=== PATIENT | male | born 1940 | race Caucasian/White ===

== ENCOUNTER 2019-03-08 12:13 | Outpatient (CLI) | payer MEDICARE, OTHER ==
[~2019-03-08 12:13] MED LIST: BISA10SU4 PR; DOCU100C33 PO; GADOTERATE 10 MMOL/20 ML SYR ONE; HYDR-3237 PO; MULT-658 PO; ONDA4TAB13 SL; POLY17PO5 PO; SAW160CA4 PO; TAMS-11 PO; WARF4TAB65 PO; WARF7.5T PO; ZONI100C2 PO; [UNRECOGNIZED DRUG - OTHER] PO
== END 2019-03-08 23:59 | disposition home or self-care (01) ==
LOC: CFH 12:13
PROVIDERS: ATTEND Psychiatry & Neurology Neurology
DX: G31.9 Degenerative disease of nervous system, unspecified (principal); G93.89 Other specified disorders of brain; R60.0 Localized edema; Z86.718 Personal history of other venous thrombosis and embolism; Z86.73 Personal history of transient ischemic attack (TIA), and cerebral infarction without residual deficits
CPT/HCPCS: 70553; A9575

== ENCOUNTER 2019-05-21 15:52 | Outpatient (CLI) | payer MEDICARE, OTHER ==
[~2019-05-21 15:52] MED LIST changes: +ASPI81TA45 PO; +DIVA-61 PO; -GADOTERATE 10 MMOL/20 ML SYR ONE; +LEVE500T53 PO; +ROSU5TAB PO; +[UNRECOGNIZED DRUG - CODE] PO; +[UNRECOGNIZED DRUG - CODE] PO; +[UNRECOGNIZED DRUG - OTHER] PO; +[UNRECOGNIZED DRUG - OTHER] PO
[2019-05-21 16:34] LABS: BILIRUBIN, DIRECT 0.1 mg/dL (0.1-0.2)
== END 2019-05-21 23:59 | disposition home or self-care (01) ==
LOC: LAB 15:52
PROVIDERS: ATTEND Psychiatry & Neurology Neurology
DX: Z01.818 Encounter for other preprocedural examination (principal); R33.9 Retention of urine, unspecified
CPT/HCPCS: 36415; 80164; 80177; 82248

== ENCOUNTER 2019-05-23 12:28 | Day surgery (SDC) | payer MEDICARE, OTHER ==
[2019-05-21 15:35] LABS: BASOPHILS # (AUTO) 0.01 x10^3/uL (0-0.1); BASOPHILS % (AUTO) 0 % (0-1); EOSINOPHILS # (AUTO) 0.16 x10^3/uL (0-0.4); EOSINOPHILS % (AUTO) 3 % (1-7); LYMPHOCYTES # (AUTO) 1.47 x10^3/uL (1-3.4); LYMPHOCYTES % (AUTO) 25 % (22-44); MD NO; MEAN CORPUSCULAR HEMOGLOBIN 30.9 pg (27.5-34.5); MEAN CORPUSCULAR HGB CONC 33.8 g/dL (33.2-36.2); MEAN CORPUSCULAR VOLUME 91.4 fL (81-97); MEAN PLATELET VOLUME 7.8 fL (7.4-10.4); MONOCYTES % (AUTO) 9 % (2-9); NEUTROPHILS # (AUTO) 3.66 x10^3/uL (1.8-6.8); NEUTROPHILS % (AUTO) 63 % (42-75); PLATELET COUNT 175 x10^3/uL (130-400); RED BLOOD COUNT 4.61 x10^6/uL (4.38-5.82); RED CELL DISTRIBUTION WIDTH 14.5 % (9.4-14.8)
[2019-05-21 15:46] LABS: ALBUMIN 3.6 g/dL (3.4-5.0); ANION GAP 7 mmol/L (5-15); CALCIUM 8.6 mg/dL (8.5-10.1); CHLORIDE 108 mmol/L (98-107)
[2019-05-21 15:50] LABS: ALANINE AMINOTRANSFERASE 32 U/L (12-78); ALKALINE PHOSPHATASE 52 U/L (45-117); BILIRUBIN,TOTAL 0.5 mg/dL (0.2-1.0); CREATININE 0.98 mg/dL (0.7-1.3); TOTAL PROTEIN 7.7 g/dL (6.4-8.2)
[2019-05-21 16:17] LABS: INTERNATIONAL NORMALIZED RATIO 0.94 (0.93-1.1)
[~2019-05-23] VITALS: Ht 180.3 cm; Wt 85.7 kg
[2019-05-23] MEDS ORDERED: LACTATED RINGERS 1,000 ML IV SCH (12:52)
[2019-05-23 12:59] VITALS: BP 142/83
[2019-05-23] MEDS ORDERED: CBD OIL PO (13:18)
[2019-05-23] MEDS ORDERED: FENTANYL PF 250 MCG/5ML ONE (14:10)
[2019-05-23] MEDS ORDERED: PROPOFOL 10 MG/ML, 20ML ONE (14:46)
[2019-05-23] MEDS ORDERED: CEFAZOLIN 1,000 MG ONE ×2 (14:47)
[2019-05-23] MEDS ORDERED: DEXAMETHASONE 4 MG/ML, 1ML ONE (14:48)
[2019-05-23] MEDS ORDERED: ONDANSETRON 2MG/ML, 2ML ONE (14:49)
[2019-05-23] MEDS ORDERED: hydrALAzine 20 MG/ML, 1ML IV PRN (15:00)
[2019-05-23] MEDS ORDERED: HYDROmorphone 2 MG/ML, 1ML IVPush PRN (15:00)
[2019-05-23] MEDS ORDERED: PROMETHAZINE 25 MG/ML, 1ML IV PRN (15:00)
[2019-05-23] MEDS ORDERED: LABETALOL 5MG/ML, 20ML IV PRN (15:00)
[2019-05-23] MEDS ORDERED: FENTANYL PF 100 MCG/2ML IV PRN (15:00)
[2019-05-23] MEDS ORDERED: ONDANSETRON 2MG/ML, 2ML IV PRN (15:00)
[2019-05-23] MEDS ORDERED: OXYcodone 5 MG/5 ML ORAL.SOL UDC PO PRN (15:00)
== END 2019-05-23 17:55 | disposition home or self-care (01) ==
LOC: OUT 12:28
PROVIDERS: ATTEND Student in an Organized Health Care Education/Training Program
DX: C61 Malignant neoplasm of prostate (principal); N40.1 Benign prostatic hyperplasia with lower urinary tract symptoms; R33.8 Other retention of urine; Z98.890 Other specified postprocedural states; Z86.718 Personal history of other venous thrombosis and embolism; Z86.711 Personal history of pulmonary embolism
CPT/HCPCS: 36415; 52601; 80053; 85025; 85610; 88305; 93005; J0690; J1100; J2405; J2704; J3010; J7120

== ENCOUNTER → 2019-06-08 | Outpatient (CLI) | payer MEDICARE, OTHER ==
[~2019-06-08] MED LIST changes: +CBD OIL PO; +LEUPROLIDE (ELIGARD) 22.5 MG SYR SQ ONE; -ZONI100C2 PO; +ZONI100C29 PO
== END | disposition home or self-care (01) ==
LOC: ROC 09:36
PROVIDERS: ATTEND Radiology Radiation Oncology
DX: C61 Malignant neoplasm of prostate (principal); Z91.09 Other allergy status, other than to drugs and biological substances
CPT/HCPCS: G0463; J9217

== ENCOUNTER → 2019-07-25 | Outpatient (CLI) | payer MEDICARE, OTHER ==
[~2019-07-25] MED LIST changes: -LEUPROLIDE (ELIGARD) 22.5 MG SYR SQ ONE
[2019-07-25 15:44] LABS: BASOPHILS # (AUTO) 0.02 x10^3/uL (0-0.1); BASOPHILS % (AUTO) 0 % (0-1); EOSINOPHILS # (AUTO) 0.08 x10^3/uL (0-0.4); EOSINOPHILS % (AUTO) 2 % (1-7); LYMPHOCYTES % (AUTO) 24 % (22-44); MD NO; MEAN CORPUSCULAR HEMOGLOBIN 30.9 pg (27.5-34.5); MEAN CORPUSCULAR HGB CONC 34.2 g/dL (33.2-36.2); MEAN CORPUSCULAR VOLUME 90.4 fL (81-97); MEAN PLATELET VOLUME 8.1 fL (7.4-10.4); MONOCYTES # (AUTO) 0.57 x10^3/uL (0.2-0.8); MONOCYTES % (AUTO) 13 % (2-9); NEUTROPHILS # (AUTO) 2.79 x10^3/uL (1.8-6.8); NEUTROPHILS % (AUTO) 61 % (42-75); PLATELET COUNT 169 x10^3/uL (130-400); RED BLOOD COUNT 4.66 x10^6/uL (4.38-5.82)
[2019-07-25 15:54] LABS: ALANINE AMINOTRANSFERASE 26 U/L (12-78); ALBUMIN 3.7 g/dL (3.4-5.0); ANION GAP 7 mmol/L (5-15); CALCIUM 9.1 mg/dL (8.5-10.1); CHLORIDE 108 mmol/L (98-107); CREATININE 0.97 mg/dL (0.7-1.3)
[2019-07-25 16:04] LABS: ALKALINE PHOSPHATASE 51 U/L (45-117); BILIRUBIN,TOTAL 0.3 mg/dL (0.2-1.0); T4 (THYROXINE) 9.2 mcg/dL (4.5-12.1); TOTAL PROTEIN 7.8 g/dL (6.4-8.2)
== END | disposition home or self-care (01) ==
LOC: CFH 14:13
PROVIDERS: ATTEND Radiology Radiation Oncology
DX: Z08 Encounter for follow-up examination after completed treatment for malignant neoplasm (principal); R97.20 Elevated prostate specific antigen [PSA]; R53.82 Chronic fatigue, unspecified; D61.818 Other pancytopenia; E07.9 Disorder of thyroid, unspecified; Z85.46 Personal history of malignant neoplasm of prostate
CPT/HCPCS: 36415; 80053; 84153; 84403; 84436; 84443; 84480; 85025

== ENCOUNTER 2019-08-13 08:37 | Outpatient (CLI) | payer MEDICARE, OTHER | END 2019-08-13 23:59 | disposition home or self-care (01) | LOC: ROC 08:37 | PROVIDERS: ATTEND Radiology Radiation Oncology | DX: Z02.9 Encounter for administrative examinations, unspecified (principal) ==

== ENCOUNTER 2019-08-23 22:33 | Observation (INO) | payer MEDICARE, OTHER ==
[~2019-08-23] VITALS: Ht 180.3 cm; Wt 86.7 kg
--- NOTE | 2019-08-23 22:39 | NUR ---
THIS IS A 79Y M BIB EMS FROM HOME FOR SZ WITNESSED BY LASTING 5MINS. PT WAS SITTING WATCHING TV WHEN SZ OCCURRED. PT ARRIVED A/O 4 SPEAKING IN FULL SENTENCES. PER PT LAST SZ WAS FATHERS DAY LAST YEAR PT CONNECTED TO ALL MONITORING NADN.
[2019-08-23 22:50] LABS: BASOPHILS # (AUTO) 0.07 x10^3/uL (0-0.1); BASOPHILS % (AUTO) 1 % (0-1); EOSINOPHILS # (AUTO) 0.06 x10^3/uL (0-0.4); EOSINOPHILS % (AUTO) 0 % (1-7); LYMPHOCYTES # (AUTO) 1.21 x10^3/uL (1-3.4); LYMPHOCYTES % (AUTO) 8 % (22-44); MD NO; MEAN CORPUSCULAR HEMOGLOBIN 30.1 pg (27.5-34.5); MEAN CORPUSCULAR HGB CONC 33.8 g/dL (33.2-36.2); MEAN CORPUSCULAR VOLUME 89.1 fL (81-97); MEAN PLATELET VOLUME 7.5 fL (7.4-10.4); MONOCYTES # (AUTO) 0.35 x10^3/uL (0.2-0.8); MONOCYTES % (AUTO) 2 % (2-9); NEUTROPHILS # (AUTO) 13.06 x10^3/uL (1.8-6.8); NEUTROPHILS % (AUTO) 89 % (42-75); PLATELET COUNT 200 x10^3/uL (130-400); RED BLOOD COUNT 4.42 x10^6/uL (4.38-5.82); RED CELL DISTRIBUTION WIDTH 14.6 % (9.4-14.8)
[2019-08-23 23:02] LABS: ALANINE AMINOTRANSFERASE 24 U/L (12-78); ALBUMIN 3.5 g/dL (3.4-5.0); ANION GAP 11 mmol/L (5-15); CALCIUM 9.3 mg/dL (8.5-10.1); CHLORIDE 108 mmol/L (98-107); CREATININE 1.52 mg/dL (0.7-1.3)
[2019-08-23 23:03] LABS: ALKALINE PHOSPHATASE 48 U/L (45-117); BILIRUBIN,TOTAL 0.3 mg/dL (0.2-1.0); TOTAL PROTEIN 7.7 g/dL (6.4-8.2)
--- NOTE | 2019-08-23 23:06 | NUR ---
NOW AT BEDSIDE
--- NOTE | 2019-08-23 23:08 | NUR ---
PT TO CT AT THIS TIME
--- NOTE | 2019-08-23 23:34 | NUR ---
ALL RESULTS BACK AT THIS TIME CHART UP FOR RECHECK
[2019-08-23] MEDS ORDERED: LORazepam 2 MG/ML, 1ML ONE (23:53)
[2019-08-24] MEDS ORDERED: LORazepam 2 MG/ML, 1ML IVPush ONE
--- NOTE | 2019-08-24 00:08 | NUR ---
PT EXPERIENCED APPROX 3MIN MD DYLON UPDATED ORDERS RECEIVED. PT MEDICATED PER MAR
--- NOTE | 2019-08-24 00:30 | NUR ---
PT AND PT INTERACTING WITH NEURO MD VIA TELE ROBOT AT THIS TIME
--- NOTE | 2019-08-24 01:17 | NUR ---
MEDICATIONS ORDERED FROM PHARMACY
--- NOTE | 2019-08-24 01:22 | NUR ---
RESTING QUIETLY AT THIS TIME, NO SEIZURE ACTIVITY CURRENTLY, SEIZURE PADS IN PLACE.
[2019-08-24] MEDS ORDERED: LEVETIRACETAM 1,000 MG in SODIUM CHLORIDE 0.9% 100 ML IV ONE ×2 (01:30)
--- NOTE | 2019-08-24 02:16 | NUR ---
PT CALLED TO SAY SHE WILL BRING BIPAP TOMORROW
--- NOTE | 2019-08-24 02:20 | NUR ---
REPORT TO FLOOR VELIA GERMAN PT READY TO BE TRANSFERED TO ROOM [id number]
[2019-08-24 03:19] VITALS: BP 106/63
[2019-08-24] MEDS ORDERED: LORazepam 1MG TABLET PO PRN (05:30)
[2019-08-24] MEDS ORDERED: ACETAMINOPHEN 325 MG TABLET PO PRN (05:30)
[2019-08-24] MEDS ORDERED: ONDANSETRON 2MG/ML, 2ML IVPush PRN (05:30)
[2019-08-24 08:00] VITALS: BP 99/60
[2019-08-24] MEDS: SENNA/DOCUSATE TABLET PO SCH (09:00)
[2019-08-24] MEDS: DIVALPROEX 500 MG TABLET.DR PO SCH ×2 (09:00→20:05)
[2019-08-24] MEDS: ASPIRIN 81 MG TABLET EC PO SCH (09:00)
[2019-08-24] MEDS: LACTATED RINGERS 1,000 ML IV SCH ×2 (09:06→18:19)
[2019-08-24] MEDS ORDERED: LEVETIRACETAM 500 MG TABLET ONE (09:10)
[2019-08-24] MEDS: LEVETIRACETAM 500 MG TABLET PO SCH ×2 (09:11→20:05)
[2019-08-24 11:42] VITALS: BP 99/61
[2019-08-24 12:05] LABS: MICROSCOPIC NOT IND
[2019-08-24 12:09] LABS: CULTURE INDICATED? NO
[2019-08-24 14:58] VITALS: BP 110/68
[2019-08-24 20:17] VITALS: BP 106/68
[2019-08-24] MEDS ORDERED: TEMPLATE NON-FORMULARY MED. (Rosuvastatin Calcium** (Crestor**) 5 MG) HOMEMEDPO SCH (21:00)
[2019-08-25 00:56] VITALS: BP 112/68
[2019-08-25] MEDS: LACTATED RINGERS 1,000 ML IV SCH ×2 (02:16→12:06)
[2019-08-25 06:16] LABS: BASOPHILS # (AUTO) 0.02 x10^3/uL (0-0.1); BASOPHILS % (AUTO) 0 % (0-1); EOSINOPHILS # (AUTO) 0.15 x10^3/uL (0-0.4); EOSINOPHILS % (AUTO) 3 % (1-7); LYMPHOCYTES # (AUTO) 1.02 x10^3/uL (1-3.4); LYMPHOCYTES % (AUTO) 19 % (22-44); MD NO; MEAN CORPUSCULAR HEMOGLOBIN 30.2 pg (27.5-34.5); MEAN CORPUSCULAR HGB CONC 33.1 g/dL (33.2-36.2); MEAN CORPUSCULAR VOLUME 91.2 fL (81-97); MEAN PLATELET VOLUME 7.5 fL (7.4-10.4); MONOCYTES # (AUTO) 0.45 x10^3/uL (0.2-0.8); MONOCYTES % (AUTO) 9 % (2-9); NEUTROPHILS # (AUTO) 3.67 x10^3/uL (1.8-6.8); NEUTROPHILS % (AUTO) 69 % (42-75); PLATELET COUNT 155 x10^3/uL (130-400); RED BLOOD COUNT 4.01 x10^6/uL (4.38-5.82); RED CELL DISTRIBUTION WIDTH 14.8 % (9.4-14.8)
[2019-08-25 06:23] LABS: CHLORIDE 113 mmol/L (98-107)
[2019-08-25 06:31] LABS: ANION GAP 6 mmol/L (5-15); CALCIUM 8.7 mg/dL (8.5-10.1); CREATININE 0.79 mg/dL (0.7-1.3); TRIGLYCERIDES 132 mg/dL (50-200)
[2019-08-25 07:52] VITALS: BP 114/65
[2019-08-25] MEDS: ASPIRIN 81 MG TABLET EC PO SCH (09:02)
[2019-08-25] MEDS: DIVALPROEX 500 MG TABLET.DR PO SCH (09:02)
[2019-08-25] MEDS: SENNA/DOCUSATE TABLET PO SCH (09:02)
[2019-08-25] MEDS: LEVETIRACETAM 500 MG TABLET PO SCH (09:02)
[2019-08-25] MEDS ORDERED: LEVE500T53 PO (11:30)
[2019-08-25] MEDS ORDERED: DIVA-61 PO (11:30)
== END 2019-08-25 18:33 | disposition home or self-care (01) ==
LOC: ED 23:04 → EDIP 08-24 01:40 → OBSVTOIN 08-24 01:40 → INTOOBSV 08-24 01:40 → 4WST 08-24 03:10 → 4NE 08-24 12:11 → 4NW 08-24 15:58
PROVIDERS: ATTEND Internal Medicine
DX: G40.409 Other generalized epilepsy and epileptic syndromes, not intractable, without status epilepticus (principal); I25.10 Atherosclerotic heart disease of native coronary artery without angina pectoris; N17.9 Acute kidney failure, unspecified; D64.9 Anemia, unspecified; I69.354 Hemiplegia and hemiparesis following cerebral infarction affecting left non-dominant side; N40.0 Benign prostatic hyperplasia without lower urinary tract symptoms; D72.829 Elevated white blood cell count, unspecified; F80.81 Childhood onset fluency disorder; G93.89 Other specified disorders of brain; G47.31 Primary central sleep apnea; Z79.899 Other long term (current) drug therapy; Z85.46 Personal history of malignant neoplasm of prostate; Z86.711 Personal history of pulmonary embolism; Z20.828 Contact with and (suspected) exposure to other viral communicable diseases
CPT/HCPCS: 36415; 70450; 71045; 80048; 80053; 80164; 80177; 81003; 82550; 84478; 85025; 93005; 96365; 96375; 96376; 99285; G0378; J1953; J2060; J7120; U0001

== ENCOUNTER → 2019-10-27 | Outpatient (CLI) | payer MEDICARE, OTHER | END | disposition home or self-care (01) | LOC: CARD 08:33 | PROVIDERS: ATTEND Psychiatry & Neurology Neurology | DX: G40.89 Other seizures (principal) | CPT/HCPCS: 95819 ==

== ENCOUNTER → 2019-10-29 | Outpatient (CLI) | payer MEDICARE, OTHER | END | disposition home or self-care (01) | LOC: ROC 08:17 | PROVIDERS: ATTEND Radiology Radiation Oncology | DX: Z08 Encounter for follow-up examination after completed treatment for malignant neoplasm (principal); C61 Malignant neoplasm of prostate; G40.89 Other seizures | CPT/HCPCS: G0463 ==

== ENCOUNTER 2020-05-09 07:10 | Outpatient (CLI) | payer MEDICARE, OTHER | END 2020-05-09 23:59 | disposition home or self-care (01) | LOC: ROC 07:10 | PROVIDERS: ATTEND Radiology Radiation Oncology | DX: Z08 Encounter for follow-up examination after completed treatment for malignant neoplasm (principal); C61 Malignant neoplasm of prostate | CPT/HCPCS: G0463 ==

== ENCOUNTER → 2020-11-27 | Outpatient (CLI) | payer MEDICARE, OTHER | END | disposition home or self-care (01) | LOC: ROC 09:09 | PROVIDERS: ATTEND Radiology Radiation Oncology | DX: Z08 Encounter for follow-up examination after completed treatment for malignant neoplasm (principal); Z85.46 Personal history of malignant neoplasm of prostate | CPT/HCPCS: G0463 ==